=== PATIENT | female | born 1955 ===

== ENCOUNTER 2017-10-26 19:54 | Inpatient (IN) | payer MEDICARE, MEDICAID ==
[2017-10-26 19:54] VITALS: BMI 25.8
[2017-10-26] MEDS ORDERED: Albuterol-Ipratrop 3 mg / 0.5 (3 ml) UD INH STA ×4 (20:32→23:02)
--- NOTE | 2017-10-26 20:32 | ED PDOC ---
HPI: Influenza Time Seen by Provider: 10/26/17 20:27 Chief Complaint: Cough, Cold, Congestion Past Medical History Vital Signs: Last Vital Signs Temp 98.6 F 10/26/17 20:02 Pulse 120 H 10/26/17 20:02 Resp 16 10/26/17 20:02 BP 135/93 H 10/26/17 20:02 Pulse Ox 94 L 10/26/17 20:02 - Medical History PMH: Anemia, Asthma, HTN, End Stage Renal Disease (last hd. 07/29/13) - Family History Family History: States: Unknown Family Hx - Immunization History Hx Influenza Vaccination: No - Home Medications Home Medications: Ambulatory Orders Medication Instructions Recorded Iron 08/30/13 Singulair 08/30/13 Albuterol 0.083% [Albuterol 0.083% 3 ml IH Q6H PRN #30 neb 05/09/16 Inhal Eladia (2.5 mg/3 ml) UD] Albuterol HFA [Ventolin HFA 90 2 puff IH [id number] PRN #1 bottle 05/09/16 mcg/actuation (8 g)] Azithromycin [Zithromax] 250 mg PO DAILY #4 tab 05/09/16 Prednisone 50 mg PO DAILY #4 tablet 05/09/16 - Allergies Allergies/Adverse Reactions: Allergies Allergy/AdvReac Type Severity Reaction Status Date / Time Iodinated Contrast- Oral and Allergy RASH Verified 10/26/17 20:02 IV Dye - ECG O2 Sat by Pulse Oximetry: 94 Disposition - Disposition
--- NOTE | 2017-10-26 20:44 | ED PDOC ---
HPI: SOB/CHF/COPD Time Seen by Provider: 10/26/17 20:27 Chief Complaint (Nursing): Cough, Cold, Congestion Chief Complaint (Provider): shortness of breath History Per: Patient History/Exam Limitations: no limitations Onset/Duration Of Symptoms: Days (x1) Current Symptoms Are (Timing): Still Present Quality: Tightness Associated Symptoms: Productive Cough, Other (chest tightness). denies: Fever, Chills Additional Complaint(s): Silva Burleson is a 62 year old female, with a past medical history of asthma , hypertension and end stage renal disease, who presents to the emergency department complaining of shortness of breath, cough and chest tightness onset for x 1 day. Patient had her last dialysis today. Patient reports using inhaler with minimal relief. She denies any fever, chills or other medical complaints. PMD: Casey Perdomo Past Medical History Reviewed: Historical Data, Nursing Documentation, Vital Signs Vital Signs: Last Vital Signs Temp 98.6 F 10/26/17 20:02 Pulse 120 H 10/26/17 20:02 Resp 16 10/26/17 20:02 BP 135/93 H 10/26/17 20:02 Pulse Ox 94 L 10/26/17 21:49 - Medical History PMH: Anemia, Asthma, HTN, End Stage Renal Disease (last hd. 07/29/13) - Surgical History Surgical History: No Surg Hx - Family History Family History: States: Unknown Family Hx - Social History Current smoker - smoking cessation education provided: No Alcohol: None Drugs: Denies - Immunization History Hx Influenza Vaccination: No - Home Medications Home Medications: Ambulatory Orders Medication Instructions Recorded Iron 08/30/13 Singulair 08/30/13 Albuterol 0.083% [Albuterol 0.083% 3 ml IH Q6H PRN #30 neb 05/09/16 Inhal Eladia (2.5 mg/3 ml) UD] Albuterol HFA [Ventolin HFA 90 2 puff IH [id number] PRN #1 bottle 05/09/16 mcg/actuation (8 g)] Azithromycin [Zithromax] 250 mg PO DAILY #4 tab 05/09/16 Prednisone 50 mg PO DAILY #4 tablet 05/09/16 - Allergies Allergies/Adverse Reactions: Allergies Allergy/AdvReac Type Severity Reaction Status Date / Time Iodinated Contrast- Oral and Allergy RASH Verified 10/26/17 20:02 IV Dye Review of Systems ROS Statement: Except As Marked, All Systems Reviewed And Found Negative Constitutional: Negative for: Fever, Chills Cardiovascular: Positive for: Other (chest tightness) Respiratory: Positive for: Cough, Shortness of Breath Physical Exam - Reviewed Nursing Documentation Reviewed: Yes Vital Signs Reviewed: Yes - Physical Exam Appears: Positive for: Non-toxic Head Exam: Positive for: ATRAUMATIC Skin: Positive for: Normal Color, Warm, Dry Eye Exam: Positive for: Normal appearance, EOMI, PERRL Neck: Positive for: Painless ROM, Supple Cardiovascular/Chest: Positive for: Regular Rate, Rhythm. Negative for: Murmur Respiratory: Positive for: Wheezing (bilateral ), Respiratory Distress (moderate ) Gastrointestinal/Abdominal: Positive for: Normal Exam, Soft. Negative for: Tenderness Back: Negative for: L CVA Tenderness, R CVA Tenderness, Vertebral Tenderness Extremity: Positive for: Normal ROM (upper and lower extremities). Negative for : Tenderness, Deformity, Swelling Neurologic/Psych: Positive for: Alert, Oriented. Negative for: Motor/Sensory Deficits - Laboratory Results Result Diagrams: 10/26/17 21:13 10/26/17 21:13 - ECG Interpretation Of ECG: NSR @ 89, no ST-T changes. O2 Sat by Pulse Oximetry: 94 (RA) Pulse Ox Interpretation: Abnormal - Progress Re-evaluation Time: 21:49 Condition: Improving,but remains with symptoms Medical Decision Making Medical Decision Making: Time: 20:27 Initial Impression: asthma exacerbation Initial Plan: --EKG --CMP --Troponin I --CBC w/ differential --PTT --PT --Chest portable [RAD] --Duoneb 3 ml INH --SOLU-medrol 125 mg IVP --Peak flow pre/post Tx --Reevaluation ----- Scribe Attestation: Documented by Willian Ruth, acting as a scribe for Anne Holland MD. Provider Scribe Attestation: All medical record entries made by the Scribe were at my direction and personally dictated by me. I have reviewed the chart and agree that the record accurately reflects my personal performance of the history, physical exam, medical decision making, and the department course for this patient. I have also personally directed, reviewed, and agree with the discharge instructions and disposition. Disposition - Clinical Impression Clinical Impression: Asthma exacerbation, ESRD (end stage renal disease) - Patient ED Disposition Is Patient to be Admitted: Yes - Disposition Disposition Time: 23:03 Condition: STABLE Forms: [employer] (Armenian) - Pt Status Changed To: Hospital Disposition Of: Observation - POA Present On Arrival: None
[2017-10-26 21:30] LABS: BASO # 0.1 K/uL (0.0-0.2); BASO % 0.7 % (0.0-2.0); EOS # 0.9 K/uL (0.0-0.7); EOS % 10.4 % (0.0-4.0); LYMPH # 3.5 K/uL (1.0-4.3); LYMPH % 41.5 % (20.0-40.0); MEAN CELL VOLUME 88.8 fl (81.0-99.0); MEAN CORPUSCULAR HGB CONC 32.6 g/dL (33.0-37.0); MEAN PLATELET VOLUME 10.9 fl (7.2-11.7); MONO # 0.4 K/uL (0.0-0.8); MONO % 4.8 % (0.0-10.0); NEUT # 3.6 K/uL (1.8-7.0); NEUT % 42.6 % (50.0-75.0); RBC 3.8 Mil/uL (3.80-5.20); WHITE BLOOD COUNT 8.3 K/uL (4.8-10.8)
[2017-10-26 21:31] LABS: ALB/GLOB RATIO 1.2 (1.0-2.1); ALT/SGPT 20 U/L (9-52); AST/SGOT 24 U/L (14-36); BLOOD UREA NITROGEN 28 mg/dl (7-17); CALCIUM 8.5 mg/dL (8.4-10.2); GFR AFRICAN-AMERICAN 9; GFR NON-AFRICAN AMERICAN 7
[2017-10-26 21:40] LABS: INR 0.9 (0.9-1.2); PARTIAL THROMBOPLASTIN TIME 32.4 Seconds (25.6-37.1); PROTHROMBIN TIME 9.7 Seconds (9.8-13.1)
[2017-10-26] MEDS ORDERED: Albuterol-Ipratrop 3 mg / 0.5 (3 ml) UD ONE (21:57)
[2017-10-27] MEDS ORDERED: Albuterol-Ipratrop 3 mg / 0.5 (3 ml) UD INH PRN (01:17)
[2017-10-27] MEDS ORDERED: Albuterol-Ipratrop 3 mg / 0.5 (3 ml) UD ONE ×2 (02:30→08:25)
[2017-10-27] MEDS ORDERED: methylPREDNISolone 60 MG in Sodium Chloride 0.9% 50 ML IV SCH (04:00)
[2017-10-27] MEDS ORDERED: MethylPREDNISolone 40 mg Vial ONE (04:14)
[2017-10-27] MEDS: Albuterol-Ipratrop 3 mg / 0.5 (3 ml) UD INH SCH ×2 (08:25→19:07)
--- NOTE | 2017-10-27 08:40 | CARD ---
APPROVED REPORT EKG Measurement Heart [id number] <Conclusion> Normal sinus rhythm Normal ECG
--- NOTE | 2017-10-27 09:04 | RAD ---
HISTORY: SOB COMPARISON: 05/09/2016 FINDINGS: LUNGS: No active pulmonary disease. PLEURA: No significant pleural effusion identified, no pneumothorax apparent. CARDIOVASCULAR: Normal. OSSEOUS STRUCTURES: No significant abnormalities. VISUALIZED UPPER ABDOMEN: Normal. OTHER FINDINGS: None. IMPRESSION: No active disease. No significant interval change compared to the prior examination(s).
[2017-10-27] MEDS: Enoxaparin 30 mg Syringe SC SCH (17:26)
--- NOTE | 2017-10-27 17:38 | CP.PCM.HP ---
History of Present Illness - History of Present Illness History of Present Illness: 62 yr old F presented to ED with complaint of worsening SOB and chest tightness x 1 day, with symptoms present x 1 week. PMHx includes asthma, ESRD on HD MWF, hypertension, GERD. Patient reports she recently moved here from [place], [place] (1 month ago). Home albuterol pump did not alleviated her symptoms. Reports compliance with her singulair. Associated symptoms are productive cough of whitish sputum. Denies chest pain, dizziness, fevers or chills. Patient reports she tolerated her hemodialysis today. Patient reports she produces urine. PMD: Magda Silver Vascular: Dr. Torres Safety Lamp Keeper: Sadaf Zhu PMHx: asthma, ESRD on HD MWF, hypertension, GERD SurgHx: left upper extremity fistula, left nephrectomy, right kidney tumor resection, abdominal hernia repair, hysterectomy FMHx: mother at 113yrs old from heart disease and diabetes, father is 98 yrs old-had stroke x 2, sister of CKD complications SocHx: denies tobacco/Etoh or drugs, lives with daughter Medications: Albuterol HFA, Amlodipine 5 mg PO QD, Singulair 10mg PO QHS, Protonix 40mg PO QD, Sevelamer carbonate 800mg PO TID, B Complex/Folic acid Allergies: iodine contrast ED course: BP 135/92 mmHg, HR 120 bpm, resp 16, O2 sat 94% on room air, Temp 98.6 F -EKG: NSR at 89 bpm , no significant St-T changes -CXR: no active disease -CBC: WBC 8.3, H/H 11.0/33.8, plts 106 -PT 9.7, INR 0.9, PTT 32.4 -CMP: Na 141, K+ 3.5, Cl 96, HCO3 30, anion gap 19, BUN 28/ Cr 5.8, AST 24, ALT 20 -troponin < 0.0120 Present on Admission - Present on Admission Any Indicators Present on Admission: No History of DVT/PE: No History of Uncontrolled Diabetes: No Urinary Catheter: No Decubitus Ulcer Present: No History Surgical Site Infection Following: None Review of Systems - Constitutional Constitutional: absent: Chills, Weakness - EENT Eyes: absent: Change in Vision, Loss of Vision Nose/Mouth/Throat: absent: Sore Throat - Respiratory Respiratory: Cough, Dyspnea, Wheezing, Pain with Coughing. absent: Hemoptysis - Gastrointestinal Gastrointestinal: absent: Abdominal Pain, Nausea, Vomiting - Genitourinary Genitourinary: absent: Difficulty Urinating, Dysuria - Menstruation Menstruation: S/P Hysterectomy - Musculoskeletal Musculoskeletal: absent: Arthralgias - Integumentary Integumentary: Dry Skin. absent: Wounds - Neurological Neurological: absent: Confusion, Disequilibrium, Dizziness, Numbness - Psychiatric Psychiatric: Anxiety - Endocrine Endocrine: absent: Polydipsia, Polyphagia, Polyuria - Hematologic/Lymphatic Hematologic: absent: Easy Bleeding, Easy Bruising Past Patient History - Past Medical History & Family History Past Medical History?: Yes - Past Social History Smoking Status: Never Smoked - CARDIAC Hx Cardiac Disorders: Yes Hx Hypercholesterolemia: Yes Hx Hypertension: Yes - PULMONARY Hx Respiratory Disorders: Yes Hx Asthma: Yes - RENAL Hx Chronic Kidney Disease: Yes Hx Dialysis: Yes Type of Dialysis Access: AV SHUNT Date of Last Dialysis Treatment: 10/26/17 - HEMATOLOGICAL/ONCOLOGICAL Hx Anemia: Yes - MUSCULOSKELETAL/RHEUMATOLOGICAL Hx Falls: No - GENITOURINARY/GYNECOLOGICAL Hx Genitourinary Disorders: No - PSYCHIATRIC Hx Substance Use: No - SURGICAL HISTORY Hx Hysterectomy: Yes Other/Comment: nephrectomy ,oopherctomy - ANESTHESIA Hx Anesthesia: Yes Hx Anesthesia Reactions: No Hx Malignant Hyperthermia: No Has any member of the family had a problem w/ anesthesia?: No Meds Allergies/Adverse Reactions: Allergies Allergy/AdvReac Type Severity Reaction Status Date / Time Iodinated Contrast- Oral and Allergy RASH Verified 10/26/17 20:02 IV Dye Physical Exam - Constitutional Appears: No Acute Distress - Head Exam Head Exam: ATRAUMATIC, NORMOCEPHALIC - Eye Exam Eye Exam: EOMI, PERRL - ENT Exam ENT Exam: Mucous Membranes Moist - Neck Exam Neck exam: Positive for: Full Rom. Negative for: Lymphadenopathy - Respiratory Exam Respiratory Exam: Wheezes, NORMAL BREATHING PATTERN - Cardiovascular Exam Cardiovascular Exam: REGULAR RHYTHM, +S1, +S2 - GI/Abdominal Exam GI & Abdominal Exam: Normal Bowel Sounds, Soft. absent: Tenderness - Extremities Exam Extremities exam: Positive for: full ROM, normal capillary refill, pedal pulses present. Negative for: pedal edema, tenderness - Back Exam Back exam: absent: CVA tenderness (L), CVA tenderness (R) - Neurological Exam Neurological exam: Alert, CN II-XII Intact (grossly intact), Oriented x3 - Psychiatric Exam Psychiatric exam: Anxious - Skin Skin Exam: Dry, Normal Color, Warm Results - Vital Signs Recent Vital Signs: Last Vital Signs Temp 98.2 F 10/27/17 16:18 Pulse 93 H 10/27/17 16:18 Resp 16 10/27/17 16:18 BP 133/74 10/27/17 16:18 Pulse Ox 100 10/27/17 16:18 - Labs Result Diagrams: 10/26/17 21:13 10/26/17 21:13 Labs: Laboratory Results - last 24 hr 10/26/17 10/26/17 10/26/17 21:13 21:13 21:13 WBC 8.3 RBC 3.80 Hgb 11.0 L D Hct 33.8 L MCV 88.8 MCH 29.0 MCHC 32.6 L RDW 15.0 H Plt Count 106 L MPV 10.9 Neut % (Auto) 42.6 L Lymph % (Auto) 41.5 H Winkler % (Auto) 4.8 Eos % (Auto) 10.4 H Baso % (Auto) 0.7 Neut # (Auto) 3.6 Lymph # (Auto) 3.5 Winkler # (Auto) 0.4 Eos # (Auto) 0.9 H Baso # (Auto) 0.1 PT 9.7 L INR 0.9 APTT 32.4 Sodium 141 Potassium 3.5 L Chloride 96 L Carbon Dioxide 30 Anion Gap 19 BUN 28 H Creatinine 5.8 H Est GFR ( Amer) 9 Est GFR (Non-Af Amer) 7 Random Glucose 117 H Calcium 8.5 Total Bilirubin 0.6 AST 24 ALT 20 Alkaline Phosphatase 137 H Troponin I < 0.0120 Total Protein 7.3 Albumin 4.0 Globulin 3.3 Albumin/Globulin Ratio 1.2 Assessment & Plan - Assessment and Plan (Free Text) Assessment: 62 yr old F admitted for asthma exacerbation with PMHx including asthma, ESRD on HD MWF, hypertension, GERD. 1. Asthma exacerbation -acute -admit to telemetry -duonebs Q6, methylprednisolone 60mg IV Q6, singulair -2L supplemental O2 via nasal cannula as needed to keep O2 sat > 92% -monitor respiratory status 2. ESRD on HD MWF -chronic, stable -last HD session was 10/26/17 -nephrology consult appreciated-Sadaf Zhu -continue home medications, f/u CMP 3. Hypertension -chronic, controlled -continue home medications -monitor BP 4. DVT prophylaxis -Lovenox 30mg SC QD - Date & Time Date: 10/27/17 Time: 07:25
[2017-10-28] MEDS: Albuterol-Ipratrop 3 mg / 0.5 (3 ml) UD INH SCH ×4 (01:01→19:10)
[2017-10-28] MEDS: Enoxaparin 30 mg Syringe SC SCH (08:42)
[2017-10-28] MEDS: Pantoprazole 40 mg EC Tab PO SCH (08:43)
--- NOTE | 2017-10-28 08:51 | CP.PCM.PN ---
Subjective - Date & Time of Evaluation Date of Evaluation: 10/28/17 Time of Evaluation: 07:59 - Subjective Subjective: Patient seen and examined at bedside with Dr. Boudreaux. Continues to wheeze and have SOB. Tolerating PO diet. Patient is aware she is scheduled for hemodialysis today. Denies chest pain, dizziness, fever or chills. Objective - Vital Signs/Intake and Output Vital Signs (last 24 hours): Temp Pulse Resp BP Pulse Ox 97.9 F 93 H 18 132/78 97 10/28/17 08:19 10/28/17 08:19 10/28/17 08:19 10/28/17 08:19 10/28/17 08:19 - Medications Medications: Current Medications Albuterol/Ipratropium (Duoneb 3 Mg/0.5 Mg (3 Ml) Ud) 3 ml INH RQ6 [facility] Last Admin: 10/28/17 08:21 Dose: 3 ml Amlodipine Besylate (Norvasc) 5 mg PO DAILY [facility] Last Admin: 10/28/17 08:45 Dose: Not Given Enoxaparin Sodium (Lovenox) 30 mg SC DAILY [facility] PRN Reason: Protocol Last Admin: 10/28/17 08:42 Dose: 30 mg Home Med (B Complex W-C No.20/Folic Acid [Mynephron Capsule]) 1 mg PO DAILY [facility] Home Med (Cyanocobalamin/Folic Acid [Vitamin F13-Bnwyg Acid Tablet]) 1 each PO DAILY [facility] Home Med (Sevelamer Carbonate [Renvela]) 800 mg PO TID [facility] Methylprednisolone (Solu-Medrol) 60 mg IV Q6 [facility] Last Admin: 10/28/17 04:39 Dose: 60 mg Montelukast Sodium (Singulair) 10 mg PO HS [facility] Last Admin: 10/27/17 22:43 Dose: 10 mg Pantoprazole Sodium (Protonix Ec Tab) 40 mg PO DAILY [facility] Last Admin: 10/28/17 08:43 Dose: 40 mg - Labs Labs: 10/26/17 21:13 10/26/17 21:13 PT 9.7 Seconds (9.8-13.1) L 10/26/17 21:13 INR 0.9 (0.9-1.2) 10/26/17 21:13 APTT 32.4 Seconds (25.6-37.1) 10/26/17 21:13 - Constitutional Appears: No Acute Distress - Head Exam Head Exam: ATRAUMATIC, NORMOCEPHALIC - ENT Exam ENT Exam: Mucous Membranes Moist - Respiratory Exam Respiratory Exam: Wheezes - Cardiovascular Exam Cardiovascular Exam: REGULAR RHYTHM, +S1, +S2 - GI/Abdominal Exam GI & Abdominal Exam: Normal Bowel Sounds - Extremities Exam Extremities Exam: Full ROM. absent: Pedal Edema - Neurological Exam Neurological Exam: Alert, Awake, Oriented x3 - Psychiatric Exam Psychiatric exam: Normal Affect, Normal Mood - Skin Skin Exam: Dry, Warm Assessment and Plan - Assessment and Plan (Free Text) Assessment: 62 yr old F admitted for asthma exacerbation with PMHx including asthma, ESRD on HD MWF, hypertension, GERD. Plan: -Chest PT -duonebs Q6, methylprednisolone 60mg IV Q6, singulair -2L supplemental O2 via nasal cannula as needed to keep O2 sat > 92% -monitor respiratory status -nephrology consult appreciated-Sadaf Zhu for HD, session today -continue home medications, f/u CMP
[2017-10-28] MEDS ORDERED: Multivitamin With Minerals Tab PO SCH (09:00)
[2017-10-28 10:36] LABS: ALB/GLOB RATIO 1.3 (1.0-2.1); ALBUMIN 3.8 g/dL (3.5-5.0); CALCIUM 9.5 mg/dL (8.4-10.2)
--- NOTE | 2017-10-28 10:56 | CP.PCM.CON ---
History of Present Illness - History of Present Illness History of Present Illness: Patient is 62 years of age female was admitted was worsening of shortness of breath and wheezing. Patient receiving hemodialysis at [facility] Thursday. She moved recently from [place]. And patient receiving dialysis 3 times a week with a history of hypertension no history of diabetes mellitus. Patient stated significant history of asthma. No nausea no vomiting no chest pain PMHx: asthma, ESRD on HD MWF, hypertension, GERD SurgHx: left upper extremity fistula, left nephrectomy, right kidney tumor resection, abdominal hernia repair, hysterectomy FMHx: mother at 113yrs old from heart disease and diabetes, father is 98 yrs old-had stroke x 2, sister of CKD complications SocHx: denies tobacco/Etoh or drugs, lives with daughter Medications: Albuterol HFA, Amlodipine 5 mg PO QD, Singulair 10mg PO QHS, Protonix 40mg PO QD, Sevelamer carbonate 800mg PO TID, B Complex/Folic acid Allergies: iodine contrast Review of Systems - Review of Systems Systems not reviewed;Unavailable: Language Barrier - Constitutional Constitutional: Malaise. absent: Anorexia, Chills - EENT Nose/Mouth/Throat: absent: Epistaxis, Post Nasal Drip, Sore Throat - Breasts Breasts: absent: Pain - Cardiovascular Cardiovascular: absent: Chest Pain, Edema, Leg Edema, Rapid Heart Rate, Syncope - Respiratory Respiratory: Wheezing, Chest Congestion. absent: Hemoptysis - Gastrointestinal Gastrointestinal: absent: Abdominal Pain, Coffee Ground Emesis, Nausea - Genitourinary Genitourinary: Nocturia - Musculoskeletal Musculoskeletal: absent: Abnormal Gait, Loss of Height, Numbness - Neurological Neurological: absent: Confusion, Headaches, Loss of Vision - Psychiatric Psychiatric: absent: Abnormal Sleep Pattern, Anxiety - Endocrine Endocrine: Fatigue - Hematologic/Lymphatic Hematologic: absent: Easy Bleeding Past Patient History - Past Medical History & Family History Past Medical History?: Yes - Past Social History Smoking Status: Never Smoked - CARDIAC Hx Cardiac Disorders: Yes Hx Hypercholesterolemia: Yes Hx Hypertension: Yes - PULMONARY Hx Respiratory Disorders: Yes Hx Asthma: Yes - RENAL Hx Chronic Kidney Disease: Yes Hx Dialysis: Yes Type of Dialysis Access: AV SHUNT Date of Last Dialysis Treatment: 10/26/17 - HEMATOLOGICAL/ONCOLOGICAL Hx Anemia: Yes - MUSCULOSKELETAL/RHEUMATOLOGICAL Hx Falls: No - GENITOURINARY/GYNECOLOGICAL Hx Genitourinary Disorders: No - PSYCHIATRIC Hx Substance Use: No - SURGICAL HISTORY Hx Hysterectomy: Yes Other/Comment: nephrectomy ,oopherctomy - ANESTHESIA Hx Anesthesia: Yes Hx Anesthesia Reactions: No Hx Malignant Hyperthermia: No Has any member of the family had a problem w/ anesthesia?: No Meds Allergies/Adverse Reactions: Allergies Allergy/AdvReac Type Severity Reaction Status Date / Time Iodinated Contrast- Oral and Allergy RASH Verified 10/26/17 20:02 IV Dye - Medications Medications: Current Medications Albuterol/Ipratropium (Duoneb 3 Mg/0.5 Mg (3 Ml) Ud) 3 ml INH RQ6 [facility] Last Admin: 10/28/17 08:21 Dose: 3 ml Amlodipine Besylate (Norvasc) 5 mg PO DAILY [facility] Last Admin: 10/28/17 08:45 Dose: Not Given Enoxaparin Sodium (Lovenox) 30 mg SC DAILY [facility] PRN Reason: Protocol Last Admin: 10/28/17 08:42 Dose: 30 mg Methylprednisolone (Solu-Medrol) 60 mg IV Q6 [facility] Last Admin: 10/28/17 09:43 Dose: 60 mg Montelukast Sodium (Singulair) 10 mg PO HS [facility] Last Admin: 10/27/17 22:43 Dose: 10 mg Pantoprazole Sodium (Protonix Ec Tab) 40 mg PO DAILY [facility] Last Admin: 10/28/17 08:43 Dose: 40 mg Sevelamer HCl (Renagel) 800 mg PO TID [facility] Vitamin B Complex/Vit C/Folic Acid (Nephro-Evert) 1 tab PO DAILY [facility] Physical Exam - Constitutional Appears: No Acute Distress - Eye Exam Eye Exam: Conjunctival injection - Neck Exam Neck exam: Negative for: Lymphadenopathy - Respiratory Exam Respiratory Exam: Wheezes. absent: Chest Wall Tenderness - Cardiovascular Exam Cardiovascular Exam: REGULAR RHYTHM, RRR. absent: Gallop, JVD, Rubs - GI/Abdominal Exam GI & Abdominal Exam: Normal Bowel Sounds. absent: Distended, Guarding - Extremities Exam Extremities exam: Negative for: calf tenderness - Back Exam Back exam: absent: CVA tenderness (L), CVA tenderness (R) - Neurological Exam Neurological exam: Alert - Psychiatric Exam Psychiatric exam: Normal Affect Results - Vital Signs Recent Vital Signs: Last Vital Signs Temp 97.9 F 10/28/17 08:19 Pulse 93 H 06/20/18 08:19 Resp 18 10/28/17 08:19 BP 132/78 10/28/17 08:19 Pulse Ox 97 10/28/17 08:19 - Labs Result Diagrams: 10/26/17 21:13 10/28/17 10:02 Labs: Laboratory Results - last 24 hr 10/28/17 10:02 Sodium 138 Potassium 4.3 Chloride 98 Carbon Dioxide 21 L Anion Gap 23 H BUN 73 H Creatinine 9.7 H* D Est GFR ( Amer) 5 Est GFR (Non-Af Amer) 4 Random Glucose 231 H Calcium 9.5 Total Bilirubin 0.4 AST 22 ALT 9 D Alkaline Phosphatase 104 Total Protein 6.8 Albumin 3.8 Globulin 3.0 Albumin/Globulin Ratio 1.3 Assessment & Plan (1) ESRD (end stage renal disease) Assessment and Plan: Patient with end stage renal disease admitted with exacerbation of acute asthma. Patient is scheduled to have dialysis shortly Consent was taken Order was given Other diagnosis History of hypertension and the asthma In addition the significant surgical history of nephrectomy I suggested dual CT scan of the abdomen and pelvis on the patient please follow up on the history of nephrectomy and renal tumor that has been reported also hyperphosphatemia. Continue phosphorus binders Secondary hyperparathyroidism continue Sensipar Status: Acute (2) Asthma with bronchitis Status: Acute
[2017-10-28] MEDS: Multivitamin Vitamin B Complex (Nephro-Vite) Tab PO SCH (12:21)
[2017-10-28 16:17] LABS: HEPATITIS B SURFACE AG Negative (NEGATIVE)
[2017-10-28 16:21] LABS: HEPATITIS B CORE AB NEGATIVE (NEGATIVE)
[2017-10-28 16:33] LABS: HEPATITIS C ANTIBODY NEGATIVE (NEGATIVE)
[2017-10-29] MEDS: Albuterol-Ipratrop 3 mg / 0.5 (3 ml) UD INH SCH ×4 (01:04→19:32)
[2017-10-29] MEDS: Enoxaparin 30 mg Syringe SC SCH (09:58)
[2017-10-29] MEDS: Pantoprazole 40 mg EC Tab PO SCH (09:59)
[2017-10-29] MEDS: Multivitamin Vitamin B Complex (Nephro-Vite) Tab PO SCH (09:59)
--- NOTE | 2017-10-29 10:50 | CP.PCM.PN ---
Subjective - Date & Time of Evaluation Date of Evaluation: 10/29/17 Time of Evaluation: 10:48 - Subjective Subjective: Patient continued to improve. She is feeling much better less coughing and less wheezing No nausea or vomiting Objective - Vital Signs/Intake and Output Vital Signs (last 24 hours): Temp Pulse Resp BP Pulse Ox 98 F 100 H 20 146/85 97 10/29/17 08:03 10/29/17 09:58 10/29/17 08:03 10/29/17 09:58 10/29/17 08:03 - Medications Medications: Current Medications Albuterol/Ipratropium (Duoneb 3 Mg/0.5 Mg (3 Ml) Ud) 3 ml INH RQ6 [facility] Last Admin: 10/29/17 07:41 Dose: 3 ml Amlodipine Besylate (Norvasc) 5 mg PO DAILY [facility] Last Admin: 10/29/17 09:58 Dose: 5 mg Cinacalcet (Sensipar) 120 mg PO DAILY [facility] Last Admin: 10/29/17 09:59 Dose: 120 mg Enoxaparin Sodium (Lovenox) 30 mg SC DAILY [facility] PRN Reason: Protocol Last Admin: 10/29/17 09:58 Dose: 30 mg Methylprednisolone (Solu-Medrol) 60 mg IV Q6 [facility] Last Admin: 10/29/17 09:58 Dose: 60 mg Montelukast Sodium (Singulair) 10 mg PO HS [facility] Last Admin: 10/28/17 22:37 Dose: 10 mg Pantoprazole Sodium (Protonix Ec Tab) 40 mg PO DAILY [facility] Last Admin: 10/29/17 09:59 Dose: 40 mg Sevelamer HCl (Renagel) 2,400 mg PO TID [facility] Last Admin: 10/29/17 09:58 Dose: 2,400 mg Vitamin B Complex/Vit C/Folic Acid (Nephro-Evert) 1 tab PO DAILY [facility] Last Admin: 10/29/17 09:59 Dose: 1 tab - Labs Labs: 10/26/17 21:13 10/28/17 10:02 PT 9.7 Seconds (9.8-13.1) L 10/26/17 21:13 INR 0.9 (0.9-1.2) 10/26/17 21:13 APTT 32.4 Seconds (25.6-37.1) 10/26/17 21:13 - Constitutional Appears: No Acute Distress - ENT Exam ENT Exam: Mucous Membranes Moist - Respiratory Exam Respiratory Exam: NORMAL BREATHING PATTERN. absent: Chest Wall Tenderness - GI/Abdominal Exam GI & Abdominal Exam: Soft, Normal Bowel Sounds - Extremities Exam Extremities Exam: absent: Calf Tenderness - Back Exam Back Exam: absent: CVA tenderness (L), CVA tenderness (R) - Neurological Exam Neurological Exam: Alert - Psychiatric Exam Psychiatric exam: Normal Affect - Skin Skin Exam: absent: Cyanosis Assessment and Plan (1) ESRD (end stage renal disease) Assessment & Plan: End stage renal disease on dialysis Thursday. Asthmatic bronchitis appears to be improving . Hypertension appears to be controlled. Serum phosphorus noted to be acceptable 4.8 PTH pending Continue hemodialysis as scheduled Status: Acute (2) Asthma with bronchitis Status: Acute
[2017-10-29] MEDS ORDERED: MethylPREDNISolone 40 mg Vial IVP ONE (12:45)
--- NOTE | 2017-10-29 14:15 | CP.PCM.PN ---
Subjective - Date & Time of Evaluation Date of Evaluation: 10/29/17 Time of Evaluation: 08:30 - Subjective Subjective: Patient seen and examined at bedside with Dr. Boudreaux. Reports SOB is improving. Denies chest pain, weakness, nausea, vomiting or cough. Is tolerating PO diet, ambulating without difficulty. Objective - Vital Signs/Intake and Output Vital Signs (last 24 hours): Temp Pulse Resp BP Pulse Ox 97.8 F 89 20 120/78 95 10/29/17 12:15 10/29/17 12:15 10/29/17 12:15 10/29/17 12:15 10/29/17 12:15 - Medications Medications: Current Medications Albuterol/Ipratropium (Duoneb 3 Mg/0.5 Mg (3 Ml) Ud) 3 ml INH RQ6 [facility] Last Admin: 10/29/17 13:45 Dose: 3 ml Amlodipine Besylate (Norvasc) 5 mg PO DAILY [facility] Last Admin: 10/29/17 09:58 Dose: 5 mg Cinacalcet (Sensipar) 120 mg PO DAILY [facility] Last Admin: 10/29/17 09:59 Dose: 120 mg Enoxaparin Sodium (Lovenox) 30 mg SC DAILY [facility] PRN Reason: Protocol Last Admin: 10/29/17 09:58 Dose: 30 mg Methylprednisolone (Solu-Medrol) 40 mg IVP Q12H [facility] Montelukast Sodium (Singulair) 10 mg PO HS [facility] Last Admin: 10/28/17 22:37 Dose: 10 mg Pantoprazole Sodium (Protonix Ec Tab) 40 mg PO DAILY [facility] Last Admin: 10/29/17 09:59 Dose: 40 mg Sevelamer HCl (Renagel) 2,400 mg PO TID [facility] Last Admin: 10/29/17 14:01 Dose: Not Given Vitamin B Complex/Vit C/Folic Acid (Nephro-Evert) 1 tab PO DAILY [facility] Last Admin: 10/29/17 09:59 Dose: 1 tab - Labs Labs: 10/26/17 21:13 10/28/17 10:02 PT 9.7 Seconds (9.8-13.1) L 10/26/17 21:13 INR 0.9 (0.9-1.2) 10/26/17 21:13 APTT 32.4 Seconds (25.6-37.1) 10/26/17 21:13 - Constitutional Appears: No Acute Distress - ENT Exam ENT Exam: Mucous Membranes Moist - Neck Exam Neck Exam: Full ROM. absent: Lymphadenopathy - Respiratory Exam Respiratory Exam: Wheezes (mild, improved compared to yesterday), NORMAL BREATHING PATTERN. absent: Rales, Rhonchi - Cardiovascular Exam Cardiovascular Exam: REGULAR RHYTHM - GI/Abdominal Exam GI & Abdominal Exam: Normal Bowel Sounds - Neurological Exam Neurological Exam: Alert, Awake, CN II-XII Intact (grossly intact), Normal Gait Assessment and Plan - Assessment and Plan (Free Text) Assessment: 62 yr old F admitted for asthma exacerbation with PMHx including asthma, ESRD on HD MWF, hypertension, GERD. Plan: -continue current management -Chest PT -duonebs Q6, taper methylprednisolone to 40mg IV Q12 , singulair -2L supplemental O2 via nasal cannula as needed to keep O2 sat > 92% -monitor respiratory status -nephrology consult appreciated-Dr. Lamb for HD, session tomorrow -continue home medications
[2017-10-29] MEDS: MethylPREDNISolone 40 mg Vial IVP SCH (17:52)
[2017-10-30] MEDS: MethylPREDNISolone 40 mg Vial IVP SCH ×3 (00:06→17:13)
[2017-10-30] MEDS: Albuterol-Ipratrop 3 mg / 0.5 (3 ml) UD INH SCH ×3 (01:36→13:32)
--- NOTE | 2017-10-30 08:39 | CP.PCM.PN ---
Subjective - Date & Time of Evaluation Date of Evaluation: 10/30/17 Time of Evaluation: 08:39 - Subjective Subjective: Patient awake conscious feeling good No nausea no vomiting no chest pain Minimal coughing Objective - Vital Signs/Intake and Output Vital Signs (last 24 hours): Temp Pulse Resp BP Pulse Ox 97.9 F 83 20 125/75 94 L 10/30/17 08:00 10/30/17 08:00 10/30/17 08:00 10/30/17 08:00 10/30/17 08:00 - Medications Medications: Current Medications Albuterol/Ipratropium (Duoneb 3 Mg/0.5 Mg (3 Ml) Ud) 3 ml INH RQ6 [facility] Last Admin: 10/30/17 07:56 Dose: 3 ml Amlodipine Besylate (Norvasc) 5 mg PO DAILY [facility] Last Admin: 10/29/17 09:58 Dose: 5 mg Cinacalcet (Sensipar) 120 mg PO DAILY [facility] Last Admin: 10/29/17 09:59 Dose: 120 mg Enoxaparin Sodium (Lovenox) 30 mg SC DAILY [facility] PRN Reason: Protocol Last Admin: 10/29/17 09:58 Dose: 30 mg Methylprednisolone (Solu-Medrol) 40 mg IVP Q12H [facility] Last Admin: 10/30/17 00:06 Dose: 40 mg Montelukast Sodium (Singulair) 10 mg PO HS [facility] Last Admin: 10/29/17 21:21 Dose: 10 mg Pantoprazole Sodium (Protonix Ec Tab) 40 mg PO DAILY [facility] Last Admin: 10/29/17 09:59 Dose: 40 mg Sevelamer HCl (Renagel) 2,400 mg PO TID [facility] Last Admin: 10/29/17 17:52 Dose: 2,400 mg Vitamin B Complex/Vit C/Folic Acid (Nephro-Evert) 1 tab PO DAILY [facility] Last Admin: 10/29/17 09:59 Dose: 1 tab - Labs Labs: 10/26/17 21:13 10/28/17 10:02 PT 9.7 Seconds (9.8-13.1) L 10/26/17 21:13 INR 0.9 (0.9-1.2) 10/26/17 21:13 APTT 32.4 Seconds (25.6-37.1) 10/26/17 21:13 - Constitutional Appears: No Acute Distress - ENT Exam ENT Exam: Mucous Membranes Moist - Neck Exam Neck Exam: absent: Lymphadenopathy - Respiratory Exam Respiratory Exam: Wheezes. absent: Chest Wall Tenderness - Cardiovascular Exam Cardiovascular Exam: REGULAR RHYTHM. absent: Gallop, JVD, Rubs - GI/Abdominal Exam GI & Abdominal Exam: Soft, Normal Bowel Sounds - Extremities Exam Extremities Exam: absent: Calf Tenderness - Back Exam Back Exam: absent: CVA tenderness (L), CVA tenderness (R) - Neurological Exam Neurological Exam: Alert - Psychiatric Exam Psychiatric exam: Normal Affect - Skin Skin Exam: absent: Cyanosis Assessment and Plan (1) ESRD (end stage renal disease) Assessment & Plan: End stage renal disease on dialysis Thursday. patient scheduled to have hemodialysis shortly as ordered Asthmatic bronchitis appears to be improving . Hypertension appears to be controlled. Serum phosphorus noted to be acceptable 4.8 secondary hyperparathyroidism PTH 831 patient started on Sensipar about 2 days ago 120 mg daily. Monitor serum calcium Patient apparently has not been taken Sensipar as outpatient because the insurance will not pay for it. Status: Acute (2) Asthma with bronchitis Status: Acute
[2017-10-30] MEDS: Enoxaparin 30 mg Syringe SC SCH (09:08)
[2017-10-30] MEDS: Multivitamin Vitamin B Complex (Nephro-Vite) Tab PO SCH (09:09)
[2017-10-30] MEDS: Pantoprazole 40 mg EC Tab PO SCH (09:09)
[2017-10-30 12:58] VITALS: RESP 18; O2SAT 99
[2017-10-30 16:24] VITALS: BP 130/74; PULSE 86; TEMP 98.3
--- NOTE | 2017-10-30 17:43 | CP.PCM.DIS ---
Provider - Provider Date of Admission: 10/28/17 12:27 Attending physician: Hussein Boudreaux MD Primary care physician: Magda Silver Consults: Dr. Lamb Time Spent in preparation of Discharge (in minutes): 30 Diagnosis - Discharge Diagnosis (1) Asthma exacerbation Status: Acute Priority: Low (2) ESRD (end stage renal disease) Status: Chronic Priority: Low Hospital Course - Lab Results Lab Results: Most Recent Lab Values WBC 8.3 K/uL (4.8-10.8) 10/26/17 21:13 RBC 3.80 Mil/uL (3.80-5.20) 10/26/17 21:13 Hgb 11.0 g/dL (12.0-16.0) L D 10/26/17 21:13 Hct 33.8 % (34.0-47.0) L 10/26/17 21:13 MCV 88.8 fl (81.0-99.0) 10/26/17 21:13 MCH 29.0 pg (27.0-31.0) 10/26/17 21:13 MCHC 32.6 g/dL (33.0-37.0) L 10/26/17 21:13 RDW 15.0 % (11.5-14.5) H 10/26/17 21:13 Plt Count 106 K/uL (130-400) L 10/26/17 21:13 MPV 10.9 fl (7.2-11.7) 10/26/17 21:13 Neut % (Auto) 42.6 % (50.0-75.0) L 10/26/17 21:13 Lymph % (Auto) 41.5 % (20.0-40.0) H 10/26/17 21:13 Kinney % (Auto) 4.8 % (0.0-10.0) 10/26/17 21:13 Eos % (Auto) 10.4 % (0.0-4.0) H 10/26/17 21:13 Baso % (Auto) 0.7 % (0.0-2.0) 10/26/17 21:13 Neut # (Auto) 3.6 K/uL (1.8-7.0) 10/26/17 21:13 Lymph # (Auto) 3.5 K/uL (1.0-4.3) 10/26/17 21:13 Kinney # (Auto) 0.4 K/uL (0.0-0.8) 10/26/17 21:13 Eos # (Auto) 0.9 K/uL (0.0-0.7) H 10/26/17 21:13 Baso # (Auto) 0.1 K/uL (0.0-0.2) 10/26/17 21:13 PT 9.7 Seconds (9.8-13.1) L 10/26/17 21:13 INR 0.9 (0.9-1.2) 10/26/17 21:13 APTT 32.4 Seconds (25.6-37.1) 10/26/17 21:13 Sodium 138 mmol/l (132-148) 10/28/17 10:02 Potassium 4.3 MMOL/L (3.6-5.0) 10/28/17 10:02 Chloride 98 mmol/L (98-107) 10/28/17 10:02 Carbon Dioxide 21 mmol/L (22-30) L 10/28/17 10:02 Anion Gap 23 (10-20) H 10/28/17 10:02 BUN 73 mg/dl (7-17) H 10/28/17 10:02 Creatinine 9.7 mg/dl (0.7-1.2) H* D 10/28/17 10:02 Est GFR ( Amer) 5 10/28/17 10:02 Est GFR (Non-Af Amer) 4 10/28/17 10:02 Random Glucose 231 mg/dL (65-105) H 10/28/17 10:02 Calcium 9.5 mg/dL (8.4-10.2) 10/28/17 10:02 Phosphorus 4.3 mg/dl (2.5-4.5) 10/28/17 12:26 Total Bilirubin 0.4 mg/dl (0.2-1.3) 10/28/17 10:02 AST 22 U/L (14-36) 10/28/17 10:02 ALT 9 U/L (9-52) D 10/28/17 10:02 Alkaline Phosphatase 104 U/L (38-126) 10/28/17 10:02 Troponin I < 0.0120 ng/mL (0.00-0.120) 10/26/17 21:13 Total Protein 6.8 G/DL (6.3-8.2) 10/28/17 10:02 Albumin 3.8 g/dL (3.5-5.0) 10/28/17 10:02 Globulin 3.0 gm/dL (2.2-3.9) 10/28/17 10:02 Albumin/Globulin Ratio 1.3 (1.0-2.1) 10/28/17 10:02 PTH Intact Whole Molec 831 pg/mL (14-64) H 10/28/17 12:26 Hep Bs Antigen Negative (NEGATIVE) 10/28/17 11:57 Hep Bs Antibody Positive (NEGATIVE) 10/28/17 11:57 Hep B Core IgM Ab Negative (NEGATIVE) 10/28/17 11:57 Hepatitis C Antibody Negative (NEGATIVE) 10/28/17 11:57 - Hospital Course Hospital Course: 62 yr old F admitted for acute exacerbation of moderate persistent asthma. Patients symptoms improved after treatment with IV steroids, chest PT and duonebs. She received hemodialysis during this admission. 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 - Date & Time of H&P Date of H&P: 10/27/17 Time of H&P: 07:25 Discharge Exam - Head Exam Head Exam: ATRAUMATIC, NORMOCEPHALIC - ENT Exam ENT Exam: Mucous Membranes Moist - Respiratory Exam Respiratory Exam: NORMAL BREATHING PATTERN. absent: Respiratory Distress - Cardiovascular Exam Cardiovascular Exam: REGULAR RHYTHM - GI/Abdominal Exam GI & Abdominal Exam: Normal Bowel Sounds - Neurological Exam Neurological exam: Alert, CN II-XII Intact, Oriented x3 - Psychiatric Exam Psychiatric exam: Normal Affect, Normal Mood - Skin Skin Exam: Dry, Warm Discharge Plan - Discharge Medications Prescriptions: Methylprednisolone [Medrol Dose Pack (21 tabs)] 4 mg PO DAILY #21 mg - Follow Up Plan Condition: STABLE Disposition: HOME/ ROUTINE Instructions: Asthma, Adult (DC), Hemodialysis (DC) Additional Instructions: follow up with in 1 week continue dialysis mwf and follow up with in 1 week Referrals: Ramiro Lamb MD [Staff Provider] - Casey Perdomo MD [Family Provider] -
== END 2017-10-30 17:45 | disposition home health service (06) | DRG 202 ==
LOC: H.ER 19:54 → H.ERHOLD 23:02 → UNDOADMOB 23:02 → H.TEL 10-27 09:28 → H.ERHOLD 10-27 09:28 → H.TEL 10-28 12:27 → OBSVTOIN 10-28 12:27 → UNDOADMOB 10-28 12:27 → INTOOBSV 10-28 12:27
PROVIDERS: ADMIT Internal Medicine; ATTEND Internal Medicine
PROC: 3E0F73Z Introduction of Anti-inflammatory into Respiratory Tract, Via Natural or Artificial Opening (ICD-10-PCS; principal; 2017-10-28)
PROC: 5A1D70Z Performance of Urinary Filtration, Intermittent, Less than 6 Hours Per Day (ICD-10-PCS; 2017-10-29)
DX: J45.41 Moderate persistent asthma with (acute) exacerbation (principal); N18.6 End stage renal disease; I12.0 Hypertensive chronic kidney disease with stage 5 chronic kidney disease or end stage renal disease; N25.81 Secondary hyperparathyroidism of renal origin; K21.9 Gastro-esophageal reflux disease without esophagitis; E78.00 Pure hypercholesterolemia, unspecified; Z99.2 Dependence on renal dialysis; Z90.710 Acquired absence of both cervix and uterus; Z90.5 Acquired absence of kidney; Z91.041 Radiographic dye allergy status

== ENCOUNTER 2018-08-21 18:07 | Emergency (ER) | payer MEDICAID, MEDICARE ==
[2018-08-21 18:08] VITALS: BMI 25.8
[2018-08-21 18:29] VITALS: TEMP 98.8
[2018-08-21] MEDS ORDERED: Albuterol-Ipratrop 3 mg / 0.5 (3 ml) UD INH STA ×2 (19:44→19:45)
[2018-08-21] MEDS ORDERED: Promethazine 6.25 MG/5 ML CUP PO STA (19:45)
[2018-08-21] MEDS ORDERED: Albuterol-Ipratrop 3 mg / 0.5 (3 ml) UD ONE (19:51)
[2018-08-21] MEDS ORDERED: Promethazine 6.25 MG/5 ML CUP ONE (19:51)
--- NOTE | 2018-08-21 20:18 | ED PDOC ---
HPI: SOB/CHF/COPD Time Seen by Provider: 08/21/18 19:29 Chief Complaint (Nursing): Chest Pain Chief Complaint (Provider): Shortness of breath History Per: Patient History/Exam Limitations: no limitations Onset/Duration Of Symptoms: Days Current Symptoms Are (Timing): Still Present Additional Complaint(s): 62 y/o female with a PMHx of End Stage Renal Disease (on dialysis today) and Asthma presents to the ED for evaluation of wheezing. Patient reports of having run out of her Asthma medications for the past week. Patient notes of having wheezing that has been worsening for the past five days associated with a dry cough and chest tightness. Patient states she is able to do her normal activities. Otherwise, patient denies sweats and fever. PMD: Casey Perdomo Past Medical History Reviewed: Historical Data, Nursing Documentation, Vital Signs Vital Signs: Last Vital Signs Temp 98.8 F 08/21/18 18:25 Pulse 78 08/21/18 18:25 Resp 20 08/21/18 18:25 BP 115/70 08/21/18 18:25 Pulse Ox 98 08/21/18 18:25 - Medical History PMH: Anemia, Asthma, HTN, Hypercholesterolemia, End Stage Renal Disease (last had. 08/21/2018), Chronic Kidney Disease - Surgical History Surgical History: No Surg Hx - Family History Family History: States: Unknown Family Hx - Immunization History Hx Influenza Vaccination: No - Home Medications Home Medications: Ambulatory Orders Medication Instructions Recorded Albuterol HFA [Ventolin HFA 90 1 puff IH Q6 PRN 10/27/17 mcg/actuation (8 g)] B Complex W-C No.20/Folic Acid 1 mg PO DAILY 10/27/17 [Mynephron Capsule] Cyanocobalamin/Folic Acid [Vitamin 1 each PO DAILY 10/27/17 X52-Lalya Acid Tablet] Montelukast [Singulair] 10 mg PO HS 10/27/17 Pantoprazole Sodium [Protonix] 40 mg PO DAILY 10/27/17 Sevelamer Carbonate [Renvela] 800 mg PO TID 10/27/17 amLODIPine [Norvasc] 5 mg PO DAILY 10/27/17 Methylprednisolone [Medrol Dose 4 mg PO DAILY #21 mg 10/30/17 Pack (21 tabs)] Albuterol 0.042% [Albuterol 0.042% 3 ml IH PRN PRN #25 eladia 08/21/18 Inhal Eladia (1.25mg/3ml) UD] Albuterol 0.083% [Albuterol 0.083% 2.5 mg IH Q4 PRN #25 neb 08/21/18 Inhal Eladia (2.5 mg/3 ml) UD] Albuterol HFA [Ventolin HFA 90 2 puff IH [id number] #1 puff 08/21/18 mcg/actuation (8 g)] Promethazine [Phenergan Syrup] 12.5 mg PO BID PRN #100 ml 08/21/18 predniSONE [predniSONE Tab] 60 mg PO DAILY #9 tab 08/21/18 - Allergies Allergies/Adverse Reactions: Allergies Allergy/AdvReac Type Severity Reaction Status Date / Time Iodinated Contrast- Oral and Allergy RASH Verified 08/21/18 18:25 IV Dye Review of Systems ROS Statement: Except As Marked, All Systems Reviewed And Found Negative Constitutional: Negative for: Fever, Sweats Cardiovascular: Positive for: Other (chest tightness) Respiratory: Positive for: Cough (dry), Wheezing Physical Exam - Reviewed Nursing Documentation Reviewed: Yes Vital Signs Reviewed: Yes - Physical Exam Appears: Negative for: Uncomfortable (patient is comfortable) Head Exam: Positive for: ATRAUMATIC, NORMOCEPHALIC Skin: Positive for: Normal Color, Warm, Dry Eye Exam: Positive for: Normal appearance, EOMI, PERRL ENT: Positive for: Normal ENT Inspection Neck: Positive for: Normal, Painless ROM, Supple Cardiovascular/Chest: Positive for: Regular Rate, Rhythm. Negative for: Murmur Respiratory: Positive for: Wheezing (bilaterally). Negative for: Accessory Muscle Use, Respiratory Distress Gastrointestinal/Abdominal: Positive for: Normal Exam, Soft. Negative for: Tenderness Extremity: Positive for: Normal ROM. Negative for: Deformity Neurological/Psych: Positive for: Awake, Alert, Oriented (x3). Negative for: Motor/Sensory Deficits - ECG O2 Sat by Pulse Oximetry: 98 (RA) Pulse Ox Interpretation: Normal Medical Decision Making Medical Decision Making: Time: 1944 A/P: 62 y/o female presenting with asthma exacerbation, in setting of medcine noncompliance -- Very well appearing, speaking full sentences -- No signs of fluid overload. -- Will treat with duonebs and steroid -- Will re-evaluate the patient -- EKG -- Duoneb 3mg/0.5mg (3ml) UD 3 ml INH -- Duoneb 3mg/0.5mg (3ml) UD 3 ml INH -- Prednisone 40 mg PO -- Phenergan Syrup 12.5 mg PO -- Peak Flow Pre/Post Tx Time: 2045 -- On re-evaluation patient is no longer wheezing, reporting of feeling better. On repeat exam, patient appears comfortable and in no acute distress. Patient is stable for discharge home with instructions to follow up as an outpatient. Scribe Attestation: Documented by Magi John, acting as a scribe Bhupendra Rangel MD. Provider Scribe Attestation: All medical record entries made by the Scribe were at my direction and personally dictated by me. I have reviewed the chart and agree that the record accurately reflects my personal performance of the history, physical exam, medical decision making, and the department course for this patient. I have also personally directed, reviewed, and agree with the discharge instructions and disposition. Disposition - Clinical Impression Clinical Impression: Asthma - Patient ED Disposition Is Patient to be Admitted: No Counseled Patient/Family Regarding: Studies Performed, Diagnosis, Need For Followup, Rx Given - Disposition Referrals: [facility] [Outside] Disposition: Routine/Home Disposition Time: 20:46 Condition: IMPROVED Prescriptions: Albuterol HFA [Ventolin HFA 90 mcg/actuation (8 g)] 2 puff IH [id number] #1 puff Albuterol 0.042% [Albuterol 0.042% Inhal Eladia (1.25mg/3ml) UD] 3 ml IH PRN PRN #25 eladia PRN Reason: Cough Albuterol 0.083% [Albuterol 0.083% Inhal Eladia (2.5 mg/3 ml) UD] 2.5 mg IH Q4 PRN #25 neb PRN Reason: Wheezing predniSONE [predniSONE Tab] 60 mg PO DAILY #9 tab Promethazine [Phenergan Syrup] 12.5 mg PO BID PRN #100 ml PRN Reason: Cough Instructions: Asthma in Adults, Avoiding Asthma Triggers, Medicines for Asthma Forms: [facility] (Yakut) Print Language: SENEGALESE
[2018-08-21 20:39] VITALS: BP 128/69; PULSE 82; RESP 17
[2018-08-21 20:49] VITALS: O2SAT 98
--- NOTE | 2018-08-22 21:23 | CARD ---
APPROVED REPORT Date of service: 08/21/2018 EKG Measurement Heart [id number] <Conclusion> Normal sinus rhythm Normal ECG
== END 2018-08-21 21:04 | disposition home or self-care (01) ==
LOC: H.ER 18:07
DX: J45.909 Unspecified asthma, uncomplicated (principal); J44.9 Chronic obstructive pulmonary disease, unspecified; I12.0 Hypertensive chronic kidney disease with stage 5 chronic kidney disease or end stage renal disease; J45.901 Unspecified asthma with (acute) exacerbation; N18.6 End stage renal disease; Z91.14 Patient's other noncompliance with medication regimen; Z91.19 Patient's noncompliance with other medical treatment and regimen; Z99.2 Dependence on renal dialysis